=== PATIENT | female | born 1990 | race Caucasian/White ===

== ENCOUNTER 2017-01-11 20:59 | Emergency (ER) | payer BC ==
[2017-01-11] MEDS ORDERED: SODIUM CHLORIDE 0.9% 1,000 ML IV ONE (21:37)
[2017-01-11 22:09] LABS: Appearance,Urine Cloudy (Clear); Bacteria,Urine Rare /hpf; Bilirubin,Urine Negative (Negative); Calcium Oxalate Crystals,Urine Occasional /hpf; Glucose,Urine (UA) Negative (Negative); Ketones,Urine Negative (Negative); Leukocyte Esterase,Urine Small (Negative); Mucus,Urine Rare /hpf; Nitrite,Urine Negative (Negative); PH, Urine 5.5 (5.0-8.0); Particle Count 4210; Protein,Urine Trace (Negative); RBC,Urine 2 /hpf (0-5); Specific Gravity,Urine 1.028 (1.001-1.035); Squamous Epithelial Cell,Urine 5 /hpf (0-4); UA Billing (MACRO vs. MICRO) MICRO; WBC,Urine 3 /hpf (0-5)
--- NOTE | 2017-01-11 22:18 | ED ---
Abdominal Pain HPI - General Chief Complaint: Abdominal Pain Stated Complaint: 14 weeks /Cramping Time Seen by Provider: 01/11/17 21:23 Source: patient Mode of arrival: ambulatory Limitations: no limitations - History of Present Illness Initial Comments: 26-year-old female patient percents to emergency department today for complaints of suprapubic cramping. Patient states that she is 14 weeks . States that she has had cramping for the last 3 hours. She denies any radiation of the pain to her back. She states the pain is intermittent, and she rates it at 8-9 out of 10 on a scale when the pain is present. She denies any vaginal bleeding or discharge. Denies any hematuria, dysuria, urinary frequency or urinary urgency. Denies any constipation or diarrhea. Patient denies any recent rash, fever, chills, shortness breath, chest pain, nausea, vomiting, numbness, tingling, dizziness, weakness, headache, visual changes, or any other complaints. Patient is . She has had initial evaluation with her [employer]NAGER, initial ultrasound at 8 weeks gestation showed an intrauterine . - Related Data Home Medications Medication Instructions Recorded Confirmed Caf-Bpln-Vhuvh Acid 1 cap PO DAILY 01/11/17 01/11/17 [-U Capsule (formulary)] Previous Rx's Medication Instructions Recorded Nitrofurantoin Monohyd/M-Cryst 100 mg PO Q12HR #14 cap 01/11/17 [Macrobid] Allergies Allergy/AdvReac Type Severity Reaction Status Date / Time No Known Allergies Allergy Verified 01/11/17 22:43 Review of Systems ROS Statement: Those systems with pertinent positive or pertinent negative responses have been documented in the HPI. ROS Other: All systems not noted in ROS Statement are negative. Past Medical History Past Medical History: No Reported History Additional Past Medical History / Comment(s): migraine History of Any Multi-Drug Resistant Organisms: MRSA, VRE Date of last positivie culture/infection: 2011 MDRO Source:: arm/knee Past Surgical History: No Surgical Hx Reported Past Psychological History: No Psychological Hx Reported Smoking Status: Never smoker Past Alcohol Use History: None Reported Past Drug Use History: None Reported General Exam Limitations: no limitations General appearance: alert, in no apparent distress, other (Well-developed, well- nourished adult female in no acute distress. Vital signs upon presentation were temperature 97.4F, pulse 83, respirations 18, blood pressure 117/71, pulse ox 100.) Eye exam: Present: normal appearance, PERRL, EOMI. Absent: scleral icterus, conjunctival injection, periorbital swelling ENT exam: Present: normal exam, mucous membranes moist Neck exam: Present: normal inspection. Absent: tenderness, meningismus, lymphadenopathy Respiratory exam: Present: normal lung sounds bilaterally. Absent: respiratory distress, wheezes, rales, rhonchi, stridor Cardiovascular Exam: Present: regular rate, normal rhythm, normal heart sounds. Absent: systolic murmur, diastolic murmur, rubs, gallop, clicks GI/Abdominal exam: Present: soft, normal bowel sounds. Absent: distended, tenderness, guarding, rebound, rigid Back exam: Present: normal inspection, CVA tenderness (R), CVA tenderness (L) Neurological exam: Present: alert, oriented X3, CN II-XII intact Psychiatric exam: Present: normal affect, normal mood Skin exam: Present: warm, dry, intact, normal color. Absent: rash Course Vital Signs 01/11/17 21:14 Temperature 97.4 F L Pulse Rate 83 Respiratory 18 Rate Blood Pressure 117/71 O2 Sat by Pulse 100 Oximetry Medical Decision Making - Medical Decision Making 26-year-old female patient presented for evaluation of suprapubic cramping. She did report she is 14 weeks . Patient states this is going on and off for the last 3 hours. Urinalysis was performed and showed a dark yellow color, cloudy appearance, trace protein, small leukocyte Estrace, 5 squamous epithelial cells, occasional calcium oxalate crystals, rare urine bacteria, and rare urine mucus. Ultrasound was performed and showed a single live intrauterine measuring 13 weeks 1 day, heart rate of the fetus was 155. Upon reevaluation patient states she is feeling much better, states that the cramping has lessened a lot since receiving fluids. I did inform her that we would be treating her for asymptomatic bacteruria with Macrobid. I did offer pelvic exam explaining that without any vaginal bleeding or discharge is not imperative that we perform this examination, she did refuse at this time. She has been instructed to increase her fluids. I will give her 1 more 500 mL bolus of normal saline prior to discharge as her urine was very dark and she reported drinking only 1 small bottle of water today. She is instructed to follow-up with her [employer] MANAGER in 1-2 days for recheck. She is instructed to return here immediately for any new, worsening, or concerning symptoms. Patient verbalizes understanding and agrees with this plan. - Lab Data Lab Results 01/11/17 Range/Units 21:05 Urine Color Dark Yellow Urine Appearance Cloudy H (Clear) Urine pH 5.5 (5.0-8.0) Ur Specific [place] 1.028 (1.001-1.035) Urine Protein Trace H (Negative) Urine Glucose (UA) Negative (Negative) Urine Ketones Negative (Negative) Urine Blood Negative (Negative) Urine Nitrite Negative (Negative) Urine Bilirubin Negative (Negative) Urine Urobilinogen 3.0 (<2.0) mg/dL Ur Leukocyte Esterase Small H (Negative) Urine RBC 2 (0-5) /hpf Urine WBC 3 (0-5) /hpf Ur Squamous Epith Cells 5 H (0-4) /hpf Calcium Oxalate Crystal Occasional H (None) /hpf Urine Bacteria Rare H (None) /hpf Urine Mucus Rare H (None) /hpf - Radiology Data Radiology results: report reviewed, image reviewed ultrasound report reviewed in detail, impression by shows a single live intrauterine with gestational age of 13 weeks 1 day. Heart rate is 155. Disposition Clinical Impression: Abdominal pain during , Asymptomatic bacteriuria Disposition: HOME SELF-CARE Condition: Good Instructions: Abdominal Pain in (ED), Urinary Tract Infection in (ED) Additional Instructions: Take medications as directed. Follow-up with your [employer] MANAGER as soon as possible. Increase her fluids. Follow up with primary care provider in 1-2 days for a recheck. Return immediately to emergency for any new, worsening, or concerning symptoms. Prescriptions: Nitrofurantoin Monohyd/M-Cryst [Macrobid] 100 mg PO Q12HR #14 cap Referrals: Hermes Yeung MD [Primary Care Provider] - 1-2 days Dana Villegas MD [STAFF PHYSICIAN] - 1-2 days Time of Disposition: 23:12
--- NOTE | 2017-01-11 22:43 | US ---
EXAM: US After First Trimester, Transabdominal CLINICAL HISTORY: Reason: Pain. Cramping TECHNIQUE: Real-time transabdominal obstetrical ultrasound of the maternal pelvis and a second or third trimester with image documentation. COMPARISON: No relevant prior studies available. FINDINGS: MATERNAL ANATOMY Uterus: 12.8 x 8.5 x 10.3cm Right Ovary: obscured by overlying bowel gas Left Ovary: 3.4 x 1.4 x 1.4 Post CDS / Adnexa: Within normal limits GESTATION / SURVEY CRL: 7.0 (13 weeks/1 day) Yolk Sac (normal less than 6mm): not seen Heart Rate: 155 bpm Rhythm: Normal Date of LMP: unknown Beta HcG (if available): not available IMPRESSION: Single live intrauterine with a gestational age of 13 weeks 1 day.
[2017-01-11] MEDS ORDERED: SODIUM CHLORIDE 0.9% 500 ML IV STA (23:05)
[2017-01-11 23:48] VITALS: BP 128/76; PULSE 68; RESP 19; TEMP 97.5
== END 2017-01-11 23:48 | disposition home or self-care (01) ==
LOC: EC 20:59
DX: O99.89 Other specified diseases and conditions complicating pregnancy, childbirth and the puerperium (principal); R10.9 Unspecified abdominal pain; R82.71 Bacteriuria; Z86.14 Personal history of Methicillin resistant Staphylococcus aureus infection; Z3A.14 14 weeks gestation of pregnancy; Z79.899 Other long term (current) drug therapy
CPT/HCPCS: 76801; 81001; 96360; 96361; 99284

== ENCOUNTER 2017-05-11 13:41 | Outpatient (CLI) | payer BC ==
[2017-05-11 14:09] LABS: Glucose,Whole Blood 85 mg/dL (75-99)
[2017-05-11] MEDS ORDERED: ACETAMINOPHEN TAB 500 MG TAB PO STA (14:45)
[2017-05-11 15:05] VITALS: PULSE 75; RESP 16; TEMP 97.5
[2017-05-11 15:35] VITALS: BP 119/77
--- NOTE | 2017-06-19 08:25 | P.MSEPDOC ---
Presenting Problems - Arrival Data Date of Arrival on Unit: 05/11/17 Time of Arrival on Unit: 13:41 Mode of Transport: Ambulatory - Complaint OB-Reason for Admission/Chief Complaint: Headache, Visual Disturbances, Observation/Evaluation, Dizziness Comment: Pt states visual disturbances (black floaters) begain about 1200, headache approx 40min after visual dist. Hx of migraines. Numbness in hands while driving in, numbness resolved. Medical History - Information : 3 Para: 2 Term: 2 : 0 Abortions: Spontaneous or Elective: 0 Number of Living Children: 2 - Gestational Age Gestational Age by CARA (wks/days): 30 Weeks and 2 Days Review of Systems - Review of Systems Constitutional: No problems Breast: No problems ENT: No problems Cardiovascular: No problems Respiratory: No problems Gastrointestinal: No problems Genitourinary: No problems Musculoskeletal: No problems Neurological: Dizziness Skin: No problems Comment: Pt states dizziness with visual disturbance-resolving Vital Signs - Temperature Temperature: 97.5 F Temperature Source: Temporal Artery Scan - Pulse Right Sitting Brachial Pulse Rate: 75 Pulse Assessment Method: Automatic Cuff - Respirations Respiratory Rate: 16 Oxygen Delivery Method: Room Air O2 Sat by Pulse Oximetry: 98 - Blood Pressure Right Arm Sitting Blood Pressure: 119/77 Blood Pressure Mean: 91 Blood Pressure Source: Automatic Cuff Medical Screen Scoring (Pre) - Cervical Exam Dilation: Exam Deferred Effacement: Exam Deferred Membranes: Intact - Uterine Contractions Frequency: N/A Duration: N/A Intensity: N/A - Maternal Vital Signs Maternal Temperature: N/A Maternal Blood Pressure: N/A Signs of Preeclampsia: N/A Maternal Respirations: N/A - Pain Assessment Pain Location and Character: Head Pain Scale Used: Numeric (1 - 10) Pain Intensity: 8 Pain Management Goal: 2 Pain Description: *Acute Pain Radiation Location: none Pain Frequency: Constant Pain Duration: 3 Pain Duration Units: Hours Pain Behavior: Vocalization Pharmacological Interventions: PRN Medication - Maternal Trauma Maternal Trauma: N/A - Assessment Baseline FHR: 130 Heart Rate - NICHD Category: Category I (Normal) = 0 NST: Reactive Position: N/A Station: N/A - Total Score Total Score (Pre): 0 - Level of Risk Level of Risk: Low (0-5) Physician Notification (Pre) - Physician Notified Physician Notified Date: 05/11/17 Physician Notified Time: 14:40 Physician/Practitioner Notifed:: Bakari Spoke With: Bakari New Order Received: Yes - Notification Comment Comment: Admin Tylenol 1000mg PO now, T3 prescription to be called in to [facility] in [place]; instruct pt she may take 1 T3 c\ 1 Tyl 500mg. Pt may be discharged home if some relief obtained with regular tylenol. Medical Screen Scoring (Post) - Cervical Exam Dilation: Exam Deferred Effacement: Exam Deferred Membranes: Intact - Uterine Contractions Frequency: N/A Duration: N/A Intensity: N/A - Maternal Vital Signs Maternal Temperature: N/A Maternal Blood Pressure: N/A Signs of Preeclampsia: N/A Maternal Respirations: N/A - Maternal Trauma Maternal Trauma: N/A - Assessment Heart Rate: 130 Heart Rate - NICHD Category: Category I (Normal) = 0 NST: Reactive Position: N/A Station: N/A - Total Score Total Score (Post): 0 - Post Treatment Level of Risk Post Treatment Level of Risk: Low (0-5) Physician Notification (Post) - Physician Notified Spoke With: Bakari New Order Received: Yes - Notification Comment Comment: Headache pain decreased post Tyl 1000mg administered. Pt to be discharged from triage, script for T3 cld in to [facility]. Pt to follow up with neurologist. Disposition - Disposition OB Disposition: Discharge to home, Written follow up instructions reviewed Discharge Date: 05/11/17 Discharge Time: 15:30 I agree with the RN Medical Screening Exam: Yes Risk & Benefit of care provided described in d/c instruction: Yes Diagnosis: HEADACHE
== END 2017-05-11 15:30 | disposition home or self-care (01) ==
LOC: FBPOP 13:41
PROVIDERS: ATTEND Obstetrics & Gynecology
DX: O99.89 Other specified diseases and conditions complicating pregnancy, childbirth and the puerperium (principal); R51 Headache; R42 Dizziness and giddiness; H53.8 Other visual disturbances; Z3A.30 30 weeks gestation of pregnancy
CPT/HCPCS: 59025; 99213

== ENCOUNTER 2017-05-16 01:00 | Outpatient (CLI) | payer BC ==
[2017-05-16 02:10] LABS: Appearance,Urine Cloudy (Clear); Bacteria,Urine Occasional /hpf; Bilirubin,Urine Negative (Negative); Blood,Urine Trace (Negative); Color,Urine Yellow; Glucose,Urine (UA) Negative (Negative); Ketones,Urine Trace (Negative); Leukocyte Esterase,Urine Large (Negative); Mucus,Urine Many /hpf; Nitrite,Urine Negative (Negative); Protein,Urine 1+ (Negative); RBC,Urine 14 /hpf (0-5); Specific Gravity,Urine 1.028 (1.001-1.035); Squamous Epithelial Cell,Urine 32 /hpf (0-4); WBC,Urine 11 /hpf (0-5)
[2017-05-16 02:13] VITALS: BP 113/60; PULSE 90; RESP 16; TEMP 97.5
--- NOTE | 2017-05-17 11:28 | P.MSEPDOC ---
Presenting Problems - Arrival Data Date of Arrival on Unit: 05/16/17 Time of Arrival on Unit: 01:00 Mode of Transport: Ambulatory - Complaint OB-Reason for Admission/Chief Complaint: Pain Comment: Pt arrives to triage with c/o of severe back pain and mild cramping Medical History - Information : 3 Para: 2 Term: 2 : 0 Abortions: Spontaneous or Elective: 0 Number of Living Children: 2 - Gestational Age Gestational Age by CARA (wks/days): 31 Weeks and 0 Days Review of Systems - Review of Systems Constitutional: No problems Breast: No problems ENT: No problems Cardiovascular: No problems Respiratory: No problems Gastrointestinal: No problems Genitourinary: No problems Musculoskeletal: No problems Neurological: No problems Skin: No problems Vital Signs - Temperature Temperature: 97.5 F Temperature Source: Temporal Artery Scan - Pulse Right Brachial Pulse Rate: 90 Pulse Assessment Method: Automatic Cuff - Respirations Respiratory Rate: 16 Oxygen Delivery Method: Room Air O2 Sat by Pulse Oximetry: 97 - Blood Pressure Right Arm Blood Pressure: 113/60 Blood Pressure Mean: 77 Blood Pressure Source: Automatic Cuff Medical Screen Scoring (Pre) - Cervical Exam Dilation: 0 cm = 0 Membranes: Intact - Uterine Contractions Frequency: > 5 minutes apart = 1 Duration: N/A Intensity: N/A - Maternal Vital Signs Maternal Temperature: N/A Maternal Blood Pressure: N/A Signs of Preeclampsia: N/A - Pain Assessment Pain Location and Character: Back Pain Scale Used: Numeric (1 - 10) Pain Intensity: 8 Pain Description: *Acute, Aching Pain Frequency: Intermittent Pain Duration: 15 Pain Behavior: None Exhibited Pain Aggravating Factors: None Non-Pharmacological Interventions: Inactivity - Assessment Baseline FHR: 150 Heart Rate - NICHD Category: Category I (Normal) = 0 NST: Reactive Position: N/A Station: N/A - Total Score Total Score (Pre): 1 - Level of Risk Level of Risk: Low (0-5) Physician Notification (Pre) - Physician Notified Physician Notified Date: 05/16/17 Physician Notified Time: 01:46 Physician/Practitioner Notifed:: Dr. Montez Spoke With: Dr. Montez New Order Received: Yes - Notification Comment Comment: Dr. Montez called and given report on pt in triage. C/o of severe back pain and mild cramping, no leaking or bleeding. Orders recieved to collect u/a, ffn and perform vag exam and to call with results. Medical Screen Scoring (Post) - Cervical Exam Dilation: 0 cm = 0 - Uterine Contractions Frequency: > 5 minutes apart = 1 - Maternal Vital Signs Maternal Temperature: N/A Maternal Blood Pressure: N/A Signs of Preeclampsia: N/A Maternal Respirations: N/A - Pain Assessment Pain Location and Character: Back Pain Scale Used: Numeric (1 - 10) Pain Intensity: 6 Pain Description: *Acute, Sore Pain Frequency: Intermittent Pain Duration: 15 Pain Duration Units: Minutes Pain Behavior: None Exhibited Pain Aggravating Factors: None Non-Pharmacological Interventions: Inactivity - Maternal Trauma Maternal Trauma: N/A - Assessment Heart Rate: 130 Heart Rate - NICHD Category: Category I (Normal) = 0 NST: Reactive Position: N/A Station: N/A - Total Score Total Score (Post): 1 - Post Treatment Level of Risk Post Treatment Level of Risk: Low (0-5) Physician Notification (Post) - Physician Notified Physician Notified Date: 05/16/17 Physician Notified Time: 02:48 Physician/Practitioner Notified:: Dr. Montez Spoke With: Dr. Montez New Order Received: Yes (Discharge pt to home.) - Notification Comment Comment: Yuriy Coto agree with MSE david Trejo Disposition - Disposition OB Disposition: Discharge to home Discharge Date: 05/16/17 Discharge Time: 02:56 I agree with the RN Medical Screening Exam: Yes Risk & Benefit of care provided described in d/c instruction: Yes Diagnosis: RELATED CONDITIONS, UNSPECIFIED, THIRD TRIMESTER
== END 2017-05-16 02:56 | disposition home or self-care (01) ==
LOC: FBPOP 01:00
PROVIDERS: ATTEND Obstetrics & Gynecology
DX: O99.89 Other specified diseases and conditions complicating pregnancy, childbirth and the puerperium (principal); M54.9 Dorsalgia, unspecified; R25.2 Cramp and spasm; Z3A.31 31 weeks gestation of pregnancy
CPT/HCPCS: 59025; 81001; 82731; 99213

== ENCOUNTER 2017-06-30 14:47 | Outpatient (CLI) | payer BC ==
[2017-06-30 15:08] VITALS: BP 122/81; PULSE 97; RESP 20; TEMP 98.2
--- NOTE | 2017-07-10 08:13 | P.MSEPDOC ---
Presenting Problems - Arrival Data Date of Arrival on Unit: 06/30/17 Time of Arrival on Unit: 14:47 Mode of Transport: Ambulatory - Complaint OB-Reason for Admission/Chief Complaint: Rule Out PROM Medical History - Information : 3 Para: 2 Term: 2 : 0 Abortions: Spontaneous or Elective: 0 Number of Living Children: 2 - Gestational Age Gestational Age by CARA (wks/days): 37 Weeks and 3 Days Review of Systems - Review of Systems Constitutional: No problems Breast: No problems ENT: No problems Cardiovascular: No problems Respiratory: No problems Gastrointestinal: No problems Genitourinary: No problems Musculoskeletal: No problems Neurological: No problems Skin: No problems Vital Signs - Temperature Temperature: 98.2 F Temperature Source: Temporal Artery Scan - Pulse Brachial Pulse Rate: 97 Pulse Assessment Method: Automatic Cuff - Respirations Respiratory Rate: 20 Oxygen Delivery Method: Room Air - Blood Pressure Right Arm Blood Pressure: 122/81 Blood Pressure Mean: 94 Blood Pressure Source: Automatic Cuff Medical Screen Scoring (Pre) - Cervical Exam Dilation: 0 cm = 0 - Uterine Contractions Frequency: > 5 minutes apart = 1 - Pain Assessment Pain Location and Character: Back, Abdomen Pain Scale Used: Numeric (1 - 10) Pain Intensity: 3 Pain Management Goal: 2 Pain Description: *Acute Pain Frequency: Intermittent Pain Behavior: Vocalization Pain Aggravating Factors: Contractions Non-Pharmacological Interventions: Darkened Room, Distraction, Reduce Environmental Stimuli, Relaxation Technique - Assessment Baseline FHR: 136 Heart Rate - NICHD Category: Category I (Normal) = 0 - Total Score Total Score (Pre): 1 Physician Notification (Pre) - Physician Notified Physician Notified Date: 06/30/17 Physician Notified Time: 15:40 Physician/Practitioner Notifed:: dr villegas Spoke With: dr villegas New Order Received: Yes - Notification Comment Comment: Amnisure negative, Dr Villegas on unit and reviewed monitor strip. Order to discharge home to follow up with next scheduled appt Disposition - Disposition OB Disposition: Discharge to home Discharge Date: 06/30/17 Discharge Time: 15:45 I agree with the RN Medical Screening Exam: Yes Risk & Benefit of care provided described in d/c instruction: Yes Diagnosis: FALSE LABOR AT OR AFTER 37 COMPLETED WEEKS OF GESTATION
== END 2017-06-30 15:45 | disposition home or self-care (01) ==
LOC: FBPOP 14:47
PROVIDERS: ATTEND Obstetrics & Gynecology
DX: O47.1 False labor at or after 37 completed weeks of gestation (principal); Z3A.37 37 weeks gestation of pregnancy
CPT/HCPCS: 59025; 84112; 99213

== ENCOUNTER 2017-07-07 17:25 | Outpatient (CLI) | payer BC ==
[2017-07-07 18:29] VITALS: BP 119/75; PULSE 85; RESP 16; TEMP 97.6
--- NOTE | 2017-07-08 16:44 | P.MSEPDOC ---
Presenting Problems - Arrival Data Date of Arrival on Unit: 07/07/17 Time of Arrival on Unit: 17:25 Mode of Transport: Ambulatory - Complaint OB-Reason for Admission/Chief Complaint: Decreased Movement Medical History - Information : 3 Para: 2 Term: 2 : 0 Abortions: Spontaneous or Elective: 0 Number of Living Children: 2 - Gestational Age Gestational Age by CARA (wks/days): 38 Weeks and 3 Days Review of Systems - Review of Systems Constitutional: No problems Breast: No problems ENT: No problems Cardiovascular: No problems Respiratory: No problems Gastrointestinal: No problems Genitourinary: No problems Musculoskeletal: No problems Neurological: No problems Skin: No problems Vital Signs - Temperature Temperature: 97.6 F Temperature Source: Temporal Artery Scan - Pulse Right Sitting Pulse Rate: 85 Pulse Assessment Method: Automatic Cuff - Respirations Respiratory Rate: 16 Oxygen Delivery Method: Room Air - Blood Pressure Right Arm Blood Pressure: 119/75 Blood Pressure Mean: 89 Blood Pressure Source: Automatic Cuff Medical Screen Scoring (Pre) - Cervical Exam Dilation: 1-3 cm = 1 Membranes: Intact - Uterine Contractions Frequency: > 5 minutes apart = 1 Duration: > 40 seconds = 2 - Maternal Vital Signs Maternal Temperature: N/A Maternal Blood Pressure: N/A Signs of Preeclampsia: N/A Maternal Respirations: N/A - Pain Assessment Pain Location and Character: Abdomen Pain Scale Used: Numeric (1 - 10) Pain Intensity: 2 Pain Description: Cramping Pain Frequency: Occasional Pain Duration Units: Minutes Pain Behavior: None Exhibited Pain Aggravating Factors: Contractions - Total Score Total Score (Pre): 4 - Level of Risk Level of Risk: Low (0-5) Physician Notification (Pre) - Physician Notified Physician Notified Date: 07/07/17 Physician Notified Time: 18:07 Physician/Practitioner Notifed:: Cleo Disposition - Disposition OB Disposition: Discharge to home Discharge Date: 07/07/17 Discharge Time: 18:13 I agree with the RN Medical Screening Exam: Yes Risk & Benefit of care provided described in d/c instruction: Yes Diagnosis: 38 WEEKS GESTATION OF
== END 2017-07-07 18:13 | disposition home or self-care (01) ==
LOC: FBPOP 17:25
PROVIDERS: ATTEND Obstetrics & Gynecology
DX: O36.8130 Decreased fetal movements, third trimester, not applicable or unspecified (principal); Z3A.38 38 weeks gestation of pregnancy
CPT/HCPCS: 59025; 99213

== ENCOUNTER 2017-07-08 07:59 | Outpatient (CLI) | payer BC ==
[2017-07-08 11:03] VITALS: BP 120/78; PULSE 81; RESP 20; TEMP 97
--- NOTE | 2017-07-10 08:20 | P.MSEPDOC ---
Presenting Problems - Arrival Data Date of Arrival on Unit: 07/08/17 Time of Arrival on Unit: 08:30 Mode of Transport: Ambulatory - Complaint OB-Reason for Admission/Chief Complaint: Pain Comment: Pubic pain Medical History - Information : 4 Para: 2 Term: 2 : 0 Abortions: Spontaneous or Elective: 0 Number of Living Children: 2 - Gestational Age Gestational Age by CARA (wks/days): 38 Weeks and 4 Days Review of Systems - Review of Systems Constitutional: No problems Breast: No problems ENT: No problems Cardiovascular: No problems Respiratory: No problems Gastrointestinal: No problems Genitourinary: No problems Musculoskeletal: No problems Neurological: No problems Skin: No problems Vital Signs - Temperature Temperature: 97 F Temperature Source: Tympanic - Pulse Right Sitting Brachial Pulse Rate: 81 Pulse Assessment Method: Automatic Cuff - Respirations Respiratory Rate: 20 Oxygen Delivery Method: Room Air O2 Sat by Pulse Oximetry: 99 - Blood Pressure Right Arm Sitting Blood Pressure: 120/78 Blood Pressure Mean: 92 Blood Pressure Source: Automatic Cuff Medical Screen Scoring (Pre) - Cervical Exam Dilation: 1-3 cm = 1 Membranes: Intact - Uterine Contractions Frequency: N/A Duration: N/A Intensity: N/A - Maternal Vital Signs Maternal Temperature: N/A Maternal Blood Pressure: N/A Signs of Preeclampsia: N/A Maternal Respirations: N/A - Pain Assessment Pain Location and Character: Lower, Pelvic Pain Scale Used: Numeric (1 - 10) Pain Description: *Acute - Maternal Trauma Maternal Trauma: N/A - Assessment Baseline FHR: 130 Heart Rate - NICHD Category: Category I (Normal) = 0 NST: Reactive Position: N/A Station: N/A - Total Score Total Score (Pre): 1 - Level of Risk Level of Risk: Low (0-5) Physician Notification (Pre) - Physician Notified Physician Notified Date: 07/08/17 Physician Notified Time: 08:40 Physician/Practitioner Notifed:: Bakari Spoke With: Bakari New Order Received: Yes - Notification Comment Comment: Spk c\Dr. Villegas, reported pt to triage with complaints of suprapubic pain, pt. denies symptoms of UTI (has hx), , 38 4/7, 50/ballotable, no contractions,. reactive NST. States to follow up in office tomorrow and purchase maternal support belt. Disposition - Disposition OB Disposition: Discharge to home, Written follow up instructions reviewed Discharge Date: 07/08/17 Discharge Time: 08:45 I agree with the RN Medical Screening Exam: Yes Risk & Benefit of care provided described in d/c instruction: Yes Diagnosis: FALSE LABOR AT OR AFTER 37 COMPLETED WEEKS OF GESTATION Additional Diagnoses: O47.1
== END 2017-07-08 08:45 | disposition home or self-care (01) ==
LOC: FBPOP 07:59
PROVIDERS: ATTEND Obstetrics & Gynecology
DX: Z53.9 Procedure and treatment not carried out, unspecified reason (principal)

== ENCOUNTER 2017-07-11 19:28 | Outpatient (CLI) | payer BC ==
[2017-07-11 21:04] VITALS: BP 135/79; PULSE 94; RESP 17; TEMP 97.8
--- NOTE | 2017-08-22 16:35 | P.MSEPDOC ---
Presenting Problems - Arrival Data Date of Arrival on Unit: 07/11/17 Time of Arrival on Unit: 19:30 Mode of Transport: Ambulatory - Complaint OB-Reason for Admission/Chief Complaint: Possible Onset of Labor Comment: Presents to triage for evaluation of contractions that began about two days ago but intensified about 1730 this evening. Medical History - Information : 4 Para: 2 Term: 2 : 0 Abortions: Spontaneous or Elective: 0 Number of Living Children: 2 - Gestational Age Gestational Age by CARA (wks/days): 39 Weeks and 0 Days Review of Systems - Review of Systems Constitutional: No problems Breast: No problems ENT: No problems Cardiovascular: No problems Respiratory: No problems Gastrointestinal: No problems Genitourinary: No problems Musculoskeletal: No problems Neurological: No problems Skin: No problems Vital Signs - Temperature Temperature: 97.8 F Temperature Source: Temporal Artery Scan - Pulse Pulse Oximetery Pulse Rate: 94 Pulse Assessment Method: Pulse Oximetry - Respirations Respiratory Rate: 17 Oxygen Delivery Method: Room Air O2 Sat by Pulse Oximetry: 98 - Blood Pressure Right Arm Blood Pressure: 135/79 Blood Pressure Mean: 97 Blood Pressure Source: Automatic Cuff Medical Screen Scoring (Pre) - Cervical Exam Dilation: 1-3 cm = 1 Effacement: More than 50% = 2 Membranes: Intact - Uterine Contractions Frequency: > 5 minutes apart = 1 Duration: > 40 seconds = 2 Intensity: N/A - Maternal Vital Signs Maternal Temperature: N/A Maternal Blood Pressure: N/A Signs of Preeclampsia: N/A Maternal Respirations: N/A - Pain Assessment Pain Location and Character: Abdomen Pain Scale Used: Numeric (1 - 10) Pain Intensity: 6 Pain Management Goal: 3 Pain Description: Cramping Pain Radiation Location: n/a Pain Frequency: Intermittent Pain Duration: 2 Pain Duration Units: Hours Pain Behavior: Vocalization Effects of Pain: none Pain Aggravating Factors: Contractions Pharmacological Interventions: PRN Medication - Maternal Trauma Maternal Trauma: N/A - Assessment Baseline FHR: 125 Heart Rate - NICHD Category: Category I (Normal) = 0 NST: Reactive Position: N/A Station: N/A - Total Score Total Score (Pre): 6 - Level of Risk Level of Risk: Medium (6-9) Physician Notification (Pre) - Physician Notified Physician Notified Date: 07/11/17 Physician Notified Time: 20:40 Physician/Practitioner Notifed:: Melida Spoke With: Melida New Order Received: Yes (Discharge home) - Notification Comment Comment: Patient may either stay additional hour for recheck or may be discharged home. Disposition - Disposition OB Disposition: Discharge to home Discharge Date: 07/11/17 Discharge Time: 20:45 I agree with the RN Medical Screening Exam: Yes Risk & Benefit of care provided described in d/c instruction: Yes Diagnosis: FALSE LABOR AT OR AFTER 37 COMPLETED WEEKS OF GESTATION
== END 2017-07-11 20:45 | disposition home or self-care (01) ==
LOC: FBPOP 19:28
PROVIDERS: ATTEND Obstetrics & Gynecology
DX: O47.1 False labor at or after 37 completed weeks of gestation (principal); Z3A.39 39 weeks gestation of pregnancy
CPT/HCPCS: 59025; 99213

== ENCOUNTER 2017-07-13 06:19 | Inpatient (IN) | payer BC ==
[2017-07-13] MEDS ORDERED: OXYTOCIN 10 UNIT/ML 1 ML VIAL IM PRN (06:30)
[2017-07-13] MEDS ORDERED: OXYTOCIN 20 UNITS/1000 ML NS 1,000 ML IV SCH (06:30)
[2017-07-13] MEDS ORDERED: METHYLERGONOVINE 0.2 MG/ML 1 ML AMP IM PRN (06:30)
[2017-07-13] MEDS ORDERED: LIDOCAINE 1% (PF) 10 MG/ML (30 ML SDV) SQ PRN (06:30)
[2017-07-13] MEDS ORDERED: TERBUTALINE 1 MG/ML VIAL SQ PRN (06:30)
[2017-07-13] MEDS ORDERED: PENICILLIN G POTASSIUM 5,000,000 UNIT in DEXTROSE 5% IN WATER 100 ML IVPB STA ×2 (06:30)
[2017-07-13] MEDS ORDERED: CARBOPROST TROMETHAMINE 250 MCG/ML 1 ML AMP IM PRN (06:30)
[2017-07-13] MEDS: LACTATED RINGERS 1,000 ML IV SCH ×2 (06:40→09:52)
[2017-07-13 06:49] LABS: Basophils % (A) 0 %; Eosinophils # (A) 0.1 k/uL (0-0.7); Eosinophils % (A) 1 %; HCT 33.9 % (34.0-46.0); HGB 11.6 gm/dL (11.4-16.0); Lymphocytes # (A) 1.6 k/uL (1.0-4.8); Lymphocytes % (A) 18 %; MCH 28.4 pg (25.0-35.0); MCV 83.5 fL (80.0-100.0); Mean Platelet Volume 7.1; Monocytes # (A) 0.4 k/uL (0-1.0); Monocytes % (A) 5 %; Neutrophils # (A) 6.3 k/uL (1.3-7.7); Neutrophils % (A) 73 %; Platelet Count 329 k/uL (150-450); RBC 4.07 m/uL (3.80-5.40); RDW 13.8 % (11.5-15.5); WBC 8.7 k/uL (3.8-10.6)
[2017-07-13 06:56] VITALS: BMI 34.0
--- NOTE | 2017-07-13 07:32 | P.HPOB ---
History of Present Illness H&P Date: 07/13/17 This is a 26-year-old 4 para 2011 EDC 07/18/2017 at 39-2/7 weeks' gestation. Patient presents for induction with favorable multiparous cervix. She has been having irregular moderately intense uterine contractions. She denies fluid leakage or vaginal bleeding. Fetus is been active throughout the . Past obstetric history: Blood type A positive, rubella status immune. Group B strep cultures positive. Hepatitis B surface antigen, HIV testing, urine culture, gonorrhea and chlamydia cultures all negative. One-hour Glucola 79. Liver function studies within normal limits. Past surgical history is essentially negative. Past medical history significant for anxiety and depression. Current medications vitamins daily. ALLERGIES none known. Family history significant for hypertension and a brain aneurysm. Social history patient is single, she has never been a smoker, she denies alcohol or drug use. On exam this is a pleasant white female, she is 5 foot 4 inches, 198 pounds, blood pressure 130s over 80s on admission, pulse 83. The general physical exam is within normal limits. The extremities reveal no edema. The cervix is 3 cm dilated, 70% effaced, -2 station, vertex presentation. Artificial amniorrhexis reveals clear fluid. heart rate is consistent with reactive NST. There are mild uterine contractions noted every 4 minutes apart. Impression: 39-2/7 weeks intrauterine , positive group B strep cultures , here for induction of labor. All signs reassuring. Plan: Penicillin G first doses been given, continue same per protocol. Oxytocin per hospital protocol. Close maternal and surveillance. Anticipate normal spontaneous vaginal delivery. Review of Systems Constitutional: Reports as per HPI Past Medical History Past Medical History: No Reported History Additional Past Medical History / Comment(s): migraine, anxiety and depression. History of Any Multi-Drug Resistant Organisms: MRSA, VRE Date of last positivie culture/infection: 2011 MDRO Source:: arm/knee Past Surgical History: No Surgical Hx Reported Additional Past Anesthesia/Blood Transfusion Reaction / Comment(s): no blood transfusion history Past Psychological History: No Psychological Hx Reported Smoking Status: Former smoker Past Alcohol Use History: None Reported Past Drug Use History: None Reported - Past Family History Mother History Unknown: Yes Additional Family Medical History / Comment(s): brain aneurysm Medications and Allergies Home Medications Medication Instructions Recorded Confirmed Type Abh-Tcen-Ostgf Acid 1 cap PO DAILY 01/11/17 07/13/17 History [-U Capsule (formulary)] Allergies Allergy/AdvReac Type Severity Reaction Status Date / Time No Known Allergies Allergy Verified 07/13/17 06:30 Exam - Vital Signs Vital signs: Vital Signs Temp Pulse Resp BP Pulse Ox 07/13/17 06:41 96.9 F L 83 16 133/84 97 Intake and Output 07/12/17 07/13/17 07/13/17 22:59 06:59 14:59 Other: Weight 89.811 kg See dictation under HPI please Results Result Diagrams: 07/13/17 06:36 Abnormal Lab Results - Last 24 Hours (Table) 07/13/17 Range/Units 06:36 Hct 33.9 L (34.0-46.0) % Assessment and Plan Plan: Penicillin G per hospital protocol. Oxytocin per protocol. Close maternal and surveillance. Anticipate normal spontaneous vaginal delivery. Time with Patient: Less than 30
[2017-07-13] MEDS ORDERED: SODIUM CHLORIDE 0.9% 100 ML BAG ONE (09:27)
[2017-07-13] MEDS ORDERED: BUPIVACAINE (PF) 0.25% 30 ML VIAL ONE (09:27)
[2017-07-13] MEDS ORDERED: fentaNYL (PF) 50 MCG/ML 5 ML AMP ONE (09:27)
[2017-07-13] MEDS ORDERED: BUPIVACAINE (PF) 0.25% 25 ML, fentaNYL (PF) 200 MCG in SODIUM CHLORIDE 0.9% 71 ML EPIDURAL ONE (09:50)
[2017-07-13] MEDS ORDERED: LANOLIN CREAM 5 GM TUBE TOPICAL PRN (11:23)
[2017-07-13] MEDS ORDERED: HYDROCORTISONE 2.5% RECTAL CREAM 30 GM TUBE RECTAL PRN (11:23)
[2017-07-13] MEDS ORDERED: BENZOCAINE/MENTHOL SPRAY 1 GM/SPRAY AEROSOL TOPICAL PRN (11:23)
[2017-07-13] MEDS ORDERED: diphenhydrAMINE 25 MG CAP PO PRN (11:23)
[2017-07-13] MEDS ORDERED: SIMETHICONE 80 MG CHEWABLE PO PRN (11:23)
[2017-07-13] MEDS ORDERED: diphenhydrAMINE ELIXIR 25 MG/10 ML CUP PO PRN (11:23)
[2017-07-13] MEDS ORDERED: ZOLPIDEM 5 MG TAB PO PRN (11:23)
[2017-07-13] MEDS ORDERED: WITCH HAZEL 1 EACH MED..PAD TOPICAL PRN (11:23)
[2017-07-13] MEDS ORDERED: diphenhydrAMINE 50 MG CAP PO PRN (11:23)
[2017-07-13] MEDS ORDERED: diphenhydrAMINE 50 MG/ML 1 ML VIAL IVP PRN ×2 (11:23)
--- NOTE | 2017-07-13 11:23 | P.PROBDLV ---
Vaginal Delivery Note - . Vaginal Delivery Note: This is a 26-year-old 4 para 2011 EDC 07/18/2017 at 39-2/7 weeks' gestation. Patient presented for induction with favorable multiparous cervix, positive group B strep cultures. Please see history and physical for details. is essentially unremarkable, blood type is A+, rubella status immune. Artificial amniorrhexis revealed clear fluid. Epidural was placed per her request. Penicillin G was given. heart tones were reassuring throughout the first and second stages of labor. Patient became completely dilated at 1048 hrs. and began the second stage of labor at that time. The perineal body was prepped and draped in the usual sterile fashion. With excellent maternal expulsive efforts the 's head delivered occiput anterior and restituted accordingly. There was a nuchal cord 1 that was tight and easily reduced. Shoulder was not immediately forthcoming, and therefore suprapubic pressure was applied easily per the nurse in attendance at which time the shoulder gently and easily delivered from underneath the pubic symphysis. The oropharynx, nasopharynx and external nares were all bulb suctioned on the perineal body. Patient was officially delivered of a liveborn female infant at 1108 hours. The umbilical cord was doubly clamped and ligated , baby was handed to waiting nurses for evaluation where scores of 9 and 9 at one and 5 minutes respectively were given. The placenta delivered spontaneously and was inspected and noted to be intact with trivascular cord at 111 hours. At this time the uterus was massaged, it is firm, mobile, symmetric, 18 week size and in the midline. Inspection of the cervix, vagina, perineum, periurethral and perirectal areas revealed no lacerations and no defects. Total estimated blood loss 250 mL's. Infant weighed 7 lbs. 11 oz. or 3480 g. The patient and her family are allowed to begin the bonding experience in the LDR.
[2017-07-13] MEDS: PENICILLIN G POTASSIUM 2,500,000 UNIT in DEXTROSE 5% IN WATER 100 ML IVPB SCH ×4 (11:48→19:33)
[2017-07-13] MEDS: IBUPROFEN 600 MG TAB PO PRN ×2 (14:15→19:51)
[2017-07-13] MEDS: SENNOSIDES-DOCUSATE SODIUM 1 EACH TAB PO SCH (19:50)
[2017-07-14] MEDS: IBUPROFEN 600 MG TAB PO PRN ×4 (01:53→22:49)
--- NOTE | 2017-07-14 07:36 | P.DS ---
Providers Date of admission: 07/13/17 06:19 Expected date of discharge: 07/14/17 Attending physician: Dana Villegas Primary care physician: Stated None Hospital Course: This is a 26 -year-old 4 para 2009 EDC 07/18/2017 at 39-2/7 weeks' gestation. Patient presented for induction with favorable multiparous cervix. Her was significant for positive group B strep cultures. Penicillin was given per hospital protocol. Please see my admitting history and physical for details. Epidural was placed per patient's request. She went on to deliver a liveborn female infant with scores of 9 and 9 at one and 5 minutes respectively. Infant weighed 3480 g or 7 lbs. 11 oz. No stitches were necessary, estimated blood loss recorded at 250 mL's. Please see my dictated delivery note for details. This morning the patient is doing well. She is voiding, ambulating and passing flatus without difficulty. Vital signs are stable and she is afebrile. Fundus is firm and in the midline, symmetric and 18 week size. Breasts are not engorged. A prescription is written or a double electric breast pump per the patient's request. Plan is for patient to be discharged home later today. She is in very good condition for discharge home. I have reviewed with her briefly her options for contraception and we will discuss this further in the office. I have reminded her to continue taking her vitamin daily. She will call me with any fevers shakes or chills, foul smelling or copious lochia, with the passage of large blood clots, with any pain not alleviated by Motrin products, or indeed with any concerns. She will use ibuprofen, 200 mg pills, 3 every 6 hours as needed. Patient Condition at Discharge: Good Plan - Discharge Summary New Discharge Prescriptions: No Action Ued-Stpb-Aznuo Acid [-U Capsule (formulary)] 1 cap PO DAILY Discharge Medication List Adf-Ugzn-Vpyfp Acid [-U Capsule (formulary)] 1 cap PO DAILY [History] Follow up Appointment(s)/Referral(s): Dana Villegas MD [STAFF PHYSICIAN] - 6 Weeks Discharge Disposition: HOME SELF-CARE
[2017-07-14] MEDS: SENNOSIDES-DOCUSATE SODIUM 1 EACH TAB PO SCH ×2 (08:03→22:03)
[2017-07-14] MEDS: ACETAMINOPHEN TAB 325 MG TAB PO PRN ×2 (12:06→21:17)
[2017-07-14 21:23] VITALS: RESP 16
[2017-07-15] MEDS: SENNOSIDES-DOCUSATE SODIUM 1 EACH TAB PO SCH (07:14)
[2017-07-15] MEDS: IBUPROFEN 600 MG TAB PO PRN ×2 (07:14→13:52)
[2017-07-15 07:46] VITALS: BP 144/99; PULSE 72; TEMP 97.5
--- NOTE | 2017-07-15 07:49 | P.DS ---
Providers Date of admission: 07/13/17 06:19 Expected date of discharge: 07/15/17 Attending physician: Dnaa Villegas Primary care physician: Stated None Hospital Course: This is an addendum to the previously dictated discharge summary dated 2017. Patient's discharge was postponed secondary to the not being released by upsetter setter up. Cultures are still pending at this time. Patient however is doing well, and status remains very good for discharge home today. I once again reviewed all instructions as detailed yesterday. Patient will follow-up with me in the office in 6 weeks and call with any issues or difficulties. Patient Condition at Discharge: Good Plan - Discharge Summary New Discharge Prescriptions: No Action Htp-Hkbq-Oqqmp Acid [-U Capsule (formulary)] 1 cap PO DAILY Discharge Medication List Qzx-Lyrl-Czasy Acid [-U Capsule (formulary)] 1 cap PO DAILY [History] Follow up Appointment(s)/Referral(s): Dana Villegas MD [STAFF PHYSICIAN] - 6 Weeks Discharge Disposition: HOME SELF-CARE
[2017-07-15] MEDS: ACETAMINOPHEN TAB 325 MG TAB PO PRN (10:10)
[2017-07-15] MEDS ORDERED: DIPH,PERTUS(ACELL)TETVAC-LF 0.5 ML VIAL IM ONE (10:58)
== END 2017-07-15 15:20 | disposition home or self-care (01) | DRG 775 ==
LOC: 4FBP 06:19
PROVIDERS: ADMIT Obstetrics & Gynecology; ATTEND Obstetrics & Gynecology
PROC: 3E033VJ Introduction of Other Hormone into Peripheral Vein, Percutaneous Approach (ICD-10-PCS; principal; 2017-07-13)
PROC: 3E0R3NZ Introduction of Analgesics, Hypnotics, Sedatives into Spinal Canal, Percutaneous Approach (ICD-10-PCS; principal; 2017-07-13)
PROC: 00HU33Z Insertion of Infusion Device into Spinal Canal, Percutaneous Approach (ICD-10-PCS; principal; 2017-07-13)
PROC: 10907ZC Drainage of Amniotic Fluid, Therapeutic from Products of Conception, Via Natural or Artificial Opening (ICD-10-PCS; principal; 2017-07-13)
PROC: 10E0XZZ Delivery of Products of Conception, External Approach (ICD-10-PCS; principal; 2017-07-13)
DX: O99.824 Streptococcus B carrier state complicating childbirth (principal); O69.81X0 Labor and delivery complicated by cord around neck, without compression, not applicable or unspecified; Z37.0 Single live birth; Z3A.39 39 weeks gestation of pregnancy; Z87.891 Personal history of nicotine dependence
CPT/HCPCS: 85025; 88307; 90471; 90715

== ENCOUNTER 2018-07-13 20:40 | Emergency (ER) | payer BC ==
[2018-07-13 21:26] VITALS: TEMP 100.2
[2018-07-13] MEDS ORDERED: ACETAMINOPHEN TAB 500 MG TAB PO STA (21:32)
--- NOTE | 2018-07-13 21:58 | ED ---
General Adult HPI <Erin Alvarado P - Last Filed: 07/13/18 22:57> - General Source: patient, RN notes reviewed Mode of arrival: ambulatory Limitations: no limitations <Crow Lozano - Last Filed: 07/13/18 23:09> - General Chief complaint: Upper Respiratory Infection Stated complaint: 18 Weeks preg, fever Time Seen by Provider: 07/13/18 21:21 - History of Present Illness Initial comments: 27-year-old G for P3 female currently 18 weeks presents to the emergency department for a chief complaint of fever and cough. Patient states she started to have a cough and congestion the last night. She states that throughout the day this has started to get worse. Patient states she has achine ss in her legs and back. She states her arms are also achy. Patient states she checked her temperature at home and it was 103.2. Patient did not take Tylenol at that time. Patient states she has had a decreased appetite as well but is drinking fluids.patient denies chest pain. Denies shortness of breath. Patient denies any vaginal bleeding or cramping. Patient has no other complaints at thi s time including shortness of breath, chest pain, abdominal pain, nausea or vomiting, headache, or visual changes. (Crow Lozano) - Related Data Previous Rx's Medication Instructions Recorded Oseltamivir [Tamiflu] 75 mg PO Q12HR #10 cap 07/13/18 Allergies Allergy/AdvReac Type Severity Reaction Status Date / Time No Known Allergies Allergy Verified 07/13/18 21:39 Review of Systems ROS Other: All systems not noted in ROS Statement are negative. <Erin Alvarado P - Last Filed: 07/13/18 22:57> ROS Other: All systems not noted in ROS Statement are negative. <Crow Lozano P - Last Filed: 07/13/18 23:09> ROS Statement: Those systems with pertinent positive or pertinent negative responses have been documented in the HPI. Past Medical History Past Medical History: No Reported History Additional Past Medical History / Comment(s): migraines History of Any Multi-Drug Resistant Organisms: MRSA, VRE Date of last positivie culture/infection: 2011 MDRO Source:: arm/knee Past Surgical History: No Surgical Hx Reported Additional Past Surgical History / Comment(s): wisdom teeth, Additional Past Anesthesia/Blood Transfusion Reaction / Comment(s): no blood transfusion history Past Psychological History: Anxiety, Depression Smoking Status: Former smoker Past Alcohol Use History: None Reported Past Drug Use History: None Reported - Past Family History Mother History Unknown: Yes Additional Family Medical History / Comment(s): brain aneurysm <Crow Lozano P - Last Filed: 07/13/18 23:09> General Exam Limitations: no limitations General appearance: alert, in no apparent distress Head exam: Present: atraumatic, normocephalic, normal inspection Eye exam: Present: normal appearance, PERRL, EOMI. Absent: scleral icterus, conjunctival injection, periorbital swelling ENT exam: Present: normal exam, normal oropharynx, mucous membranes moist, TM's normal bilaterally, normal external ear exam Neck exam: Present: normal inspection, full ROM. Absent: tenderness, meningismus, lymphadenopathy Respiratory exam: Present: normal lung sounds bilaterally. Absent: respiratory distress, wheezes, rales, rhonchi, stridor Cardiovascular Exam: Present: regular rate, normal rhythm, normal heart sounds. Absent: systolic murmur, diastolic murmur, rubs, gallop, clicks GI/Abdominal exam: Present: soft, normal bowel sounds. Absent: distended, tenderness, guarding, rebound, rigid Neurological exam: Present: alert, oriented X3, CN II-XII intact Psychiatric exam: Present: normal affect, normal mood Skin exam: Present: warm, dry, intact, normal color. Absent: rash <Crow Lozano P - Last Filed: 07/13/18 23:09> Course Vital Signs 07/13/18 07/13/18 07/13/18 21:00 21:25 22:23 Temperature 99.8 F H 100.2 F H Pulse Rate 98 104 H Respiratory 18 16 Rate Blood Pressure 105/74 114/76 O2 Sat by Pulse 98 97 Oximetry Medical Decision Making <Erin Alvarado P - Last Filed: 07/13/18 22:57> <Crow Lozano P - Last Filed: 07/13/18 23:09> - Medical Decision Making The patient's gas treater Dr. Villegas who recommends patient be initiated on Tamiflu and I discussed this with the patient first dose of Tamiflu will be given in the emergency department she'll be provided a prescription for 5 days. Return parameters including any signs of dehydration were discussed. Suppor tive care with Tylenol and rehydration therapy were discussed. Patient was discharged home in stable condition (Erin Alvarado) 27-year-old female presents for cough and fever starting yesterday. No shortness of breath, no chest pain. Patient also having body aches. Influenza A is positive. I did offer IV hydration the patient but she states she is taking plenty of fluids at home and will continue to do so. Patient given Tamiflu per Dr. jennings. Patient will return here if she has any worsening symptoms. She'll follow up with primary care in 1-2 days. (Crow Lozano) - Lab Data Lab Results 07/13/18 Range/Units 21:54 Influenza Type A RNA Detected H (Not Detectd) Influenza Type B (PCR) Not Detected (Not Detectd) Disposition <Erin Alvarado - Last Filed: 07/13/18 22:57> Is patient prescribed a controlled substance at d/c from ED?: No Time of Disposition: 23:07 <Crow Lozano - Last Filed: 07/13/18 23:09> Clinical Impression: Influenza A Disposition: HOME SELF-CARE Condition: Good Instructions (If sedation given, give patient instructions): Influenza (ED) Additional Instructions: Please take Tamiflu as directed. Take Tylenol for fever. Drink plenty of fluids. Return immediately to the emergency department if you have any worse natali symptoms or signs of dehydration or are unable to tolerate by mouth. Prescriptions: Oseltamivir [Tamiflu] 75 mg PO Q12HR #10 cap Referrals: Hermes Yeung MD [Primary Care Provider] - 1-2 days
[2018-07-13 22:24] VITALS: RESP 16
[2018-07-13] MEDS ORDERED: OSELTAMIVIR 75 MG CAP PO STA (22:55)
[2018-07-13 23:23] VITALS: BP 133/84; PULSE 95
== END 2018-07-13 23:23 | disposition home or self-care (01) ==
LOC: EC 20:40
DX: O99.512 Diseases of the respiratory system complicating pregnancy, second trimester (principal); J10.1 Influenza due to other identified influenza virus with other respiratory manifestations; Z3A.18 18 weeks gestation of pregnancy; Z87.891 Personal history of nicotine dependence; Z86.14 Personal history of Methicillin resistant Staphylococcus aureus infection; Z86.69 Personal history of other diseases of the nervous system and sense organs
CPT/HCPCS: 87502; 99283

== ENCOUNTER → 2018-09-21 | Outpatient (CLI) | payer BC ==
[2018-09-21 14:04] LABS: HCT 35.1 % (34.0-46.0); MCH 27.7 pg (25.0-35.0); MCHC 31.3 g/dL (31.0-37.0); MCV 88.5 fL (80.0-100.0); Mean Platelet Volume 6.7; Platelet Count 344 k/uL (150-450); RBC 3.97 m/uL (3.80-5.40); RDW 13.9 % (11.5-15.5)
== END | disposition home or self-care (01) ==
LOC: LABWHC1 11:54
PROVIDERS: ATTEND Obstetrics & Gynecology
DX: Z34.82 Encounter for supervision of other normal pregnancy, second trimester (principal)
CPT/HCPCS: 36415; 82950; 85027

== ENCOUNTER 2018-12-01 | Outpatient (CLI) | payer BC ==
--- NOTE | 2018-12-01 15:28 | P.MSEPDOC ---
Presenting Problems - Arrival Data Date of Arrival on Unit: 12/01/18 Time of Arrival on Unit: 11:31 Mode of Transport: Ambulatory - Complaint OB-Reason for Admission/Chief Complaint: Possible Onset of Labor Comment: Contractons q5-7min for several hours Medical History - Information : 4 Para: 3 Term: 3 : 0 Abortions: Spontaneous or Elective: 0 Number of Living Children: 3 - Gestational Age Gestational Age by CARA (wks/days): 38 Weeks and 4 Days Review of Systems - Review of Systems Constitutional: No problems Breast: No problems ENT: No problems Cardiovascular: No problems Respiratory: No problems Gastrointestinal: No problems Genitourinary: No problems Musculoskeletal: No problems Neurological: No problems Skin: No problems Vital Signs - Temperature Temperature: 97.3 F Temperature Source: Temporal Artery Scan - Pulse Right Sitting Brachial Pulse Rate: 80 Pulse Assessment Method: Automatic Cuff - Respirations Respiratory Rate: 16 Oxygen Delivery Method: Room Air O2 Sat by Pulse Oximetry: 97 - Blood Pressure Right Arm Sitting Blood Pressure: 110/77 Blood Pressure Mean: 88 Blood Pressure Source: Automatic Cuff Medical Screen Scoring (Pre) - Cervical Exam Dilation: 1-3 cm = 1 Effacement: More than 50% = 2 Membranes: Intact - Uterine Contractions Frequency: > or = 36 weeks =2 Duration: > 40 seconds = 2 Intensity: N/A - Maternal Vital Signs Maternal Temperature: N/A Maternal Blood Pressure: N/A Signs of Preeclampsia: N/A Maternal Respirations: N/A - Maternal Trauma Maternal Trauma: N/A - Assessment - Baby A Baseline FHR: 130 Heart Rate - NICHD Category: Category I (Normal) = 0 NST: Reactive Position: N/A Station: N/A - Total Score - Baby A Total Score - Baby A: 7 - Total Score - Baby B Total Score - Baby B: 7 - Total Score - Baby C Total Score - Baby C: 7 - Level of Risk - Baby A Level of Risk - Baby A: Medium (6-9) - Level of Risk - Baby B Level of Risk - Baby B: Medium (6-9) - Level of Risk - Baby C Level of Risk - Baby C: Medium (6-9) Physician Notification (Pre) - Physician Notified Physician Notified Date: 12/01/18 Physician Notified Time: 12:57 Physician/Practitioner Notifed:: Xander Spoke With: Xander New Order Received: Yes - Notification Comment Comment: Spk c\Dr. Terrell, advsd , 38 07/25, presents to triage c/o contrx 5- 7min x several hours. SVE Thursday in office 3.5/-2. Same on initial and repeat exam in triage, contrx 3-5min, mild, pt states she would like to be d/c and return if contrx intensity worsens. Pt to be d/c home, triage d/c instructions. Disposition - Disposition OB Disposition: Triage, Discharge to home, Written follow up instructions reviewed I agree with the RN Medical Screening Exam: Yes Risk & Benefit of care provided described in d/c instruction: Yes Diagnosis: FALSE LABOR AT OR AFTER 37 COMPLETED WEEKS OF GESTATION
== END 2018-12-01 13:02 | disposition home or self-care (01) ==
CPT/HCPCS: 59025; 99213

== ENCOUNTER 2018-12-08 06:07 | Inpatient (IN) | payer BC ==
--- NOTE | 2018-12-07 21:16 | P.HPOB ---
History of Present Illness H&P Date: 12/07/18 Chief Complaint: Induction of labor This is a 28-year-old female 5 para 3 with an estimated date of confinement of 12/11/2018, estimated gestational age of 39-4/7 weeks, who presents to labor and delivery for induction of labor. She has been experiencing irregular frequent contractions and pressure. She denies any rupture of membranes. course has been uncomplicated. Other than the left EIF diagnosed on anatomy scan. She did have a quad screen that was negative. labs: Hepatitis B surface antigen-negative RPR-nonreactive Rubella-immune Blood type-A+ Antibody screen-negative HIV-nonreactive Hemoglobin-12.7 Quad screen-negative Random glucose-79 One hour Glucola-86 Group B streptococcus-negative, however history of positive in previous . Obstetrical history: . History of 3 vaginal deliveries at term. History of 1 miscarriage. Gynecologic history: No history of sexually transmitted diseases. Social history: She is single. 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 Review of Systems Constitutional: Denies chills, Denies fever Eyes: denies blurred vision, denies pain Ears, nose, mouth and throat: Denies headache, Denies sore throat Cardiovascular: Denies chest pain, Denies shortness of breath Respiratory: Denies cough Gastrointestinal: Reports abdominal pain (Irregular contractions) Genitourinary: Reports pelvic pain, Reports Musculoskeletal: Reports low back pain Integumentary: Denies pruritus, Denies rash Neurological: Denies numbness, Denies weakness Past Medical History Past Medical History: No Reported History Additional Past Medical History / Comment(s): migraines History of Any Multi-Drug Resistant Organisms: MRSA, VRE Date of last positivie culture/infection: 2011 MDRO Source:: arm/knee Additional Past Surgical History / Comment(s): wisdom teeth, Additional Past Anesthesia/Blood Transfusion Reaction / Comment(s): no blood transfusion history Smoking Status: Never smoker Past Alcohol Use History: None Reported Past Drug Use History: None Reported - Past Family History Mother History Unknown: Yes Additional Family Medical History / Comment(s): brain aneurysm Medications and Allergies Home Medications Medication Instructions Recorded Confirmed Type Pnv No.95/Ferrous Fum/Folic AC 1 each PO DAILY 12/01/18 12/01/18 History [ Multivitamin Tablet] Allergies Allergy/AdvReac Type Severity Reaction Status Date / Time No Known Allergies Allergy Verified 12/01/18 12:46 Exam Osteopathic Statement: *. No significant issues noted on an osteopathic structural exam other than those noted in the History and Physical/Consult. HEENT: Within normal limits Heart: Regular rate and rhythm Lungs: Clear to auscultation bilaterally Abdomen: Cervix: 4 cm/70%/-2 station heart tones: 140s by Doppler Extremities: Negative Homans Assessment and Plan (1) 39 weeks gestation of Status: Acute Code(s): Z3A.39 - 39 WEEKS GESTATION OF SNOMED Code(s): 71445206 (2) Group B Streptococcus carrier, +RV culture, currently Status: Acute Code(s): O99.820 - STREPTOCOCCUS B CARRIER STATE COMPLICATING SNOMED Code(s): 0881260946189 Plan: Proceed with oxytocin induction of labor. Antibiotic prophylaxis for history of group B streptococcus. Expectant management. Epidural anesthesia if desired.
[2018-12-08] MEDS ORDERED: OXYTOCIN 10 UNIT/ML 1 ML VIAL IM PRN (06:11)
[2018-12-08] MEDS ORDERED: LIDOCAINE 0.5% (PF) 5 MG/ML (50 ML SDV) SQ PRN (06:11)
[2018-12-08] MEDS ORDERED: OXYTOCIN 30 UNITS/500 ML NS 30 UNIT in SALINE 1 500ML.BAG IV SCH (06:11)
[2018-12-08] MEDS ORDERED: METHYLERGONOVINE 0.2 MG/ML 1 ML AMP IM PRN (06:11)
[2018-12-08] MEDS ORDERED: CARBOPROST TROMETHAMINE 250 MCG/ML 1 ML AMP IM PRN (06:11)
[2018-12-08] MEDS ORDERED: LIDOCAINE 1% 20 ML VIAL (10MG/ML) FOR IV START INTRADERMA PRN (06:11)
[2018-12-08] MEDS ORDERED: TERBUTALINE 1 MG/ML VIAL SQ PRN (06:11)
[2018-12-08 06:21] VITALS: BMI 35.2
[2018-12-08] MEDS ORDERED: AMPICILLIN 2,000 MG in SODIUM CHLORIDE 0.9% 100 ML IVPB ONE (06:30)
[2018-12-08] MEDS: LACTATED RINGERS 1,000 ML IV SCH ×2 (06:33→12:51)
[2018-12-08 06:37] LABS: Basophils % (A) 0 %; Eosinophils # (A) 0.2 k/uL (0-0.7); Eosinophils % (A) 2 %; HCT 35.3 % (34.0-46.0); HGB 11.5 gm/dL (11.4-16.0); Lymphocytes # (A) 2.1 k/uL (1.0-4.8); Lymphocytes % (A) 21 %; MCH 26.7 pg (25.0-35.0); MCHC 32.5 g/dL (31.0-37.0); MCV 82.2 fL (80.0-100.0); Mean Platelet Volume 7.3; Monocytes # (A) 0.6 k/uL (0-1.0); Monocytes % (A) 6 %; Neutrophils # (A) 6.7 k/uL (1.3-7.7); Neutrophils % (A) 68 %; Platelet Count 356 k/uL (150-450); RBC 4.29 m/uL (3.80-5.40); RDW 14.6 % (11.5-15.5); WBC 9.8 k/uL (3.8-10.6)
[2018-12-08] MEDS ORDERED: BUTORPHANOL 1 MG/ML 1 ML VIAL IV PRN (09:23)
[2018-12-08 09:58] LABS: Amphetamine Screen,Urine Not Detected (NotDetected); Barbiturate Screen,Urine Not Detected (NotDetected); Benzodiazepines Screen,Urine Not Detected (NotDetected); Cocaine Screen,Urine Not Detected (NotDetected); Methadone Screen, Urine Not Detected (NotDetected); Opiate Screen,Urine Not Detected (NotDetected); Oxycodone Screen, Urine Not Detected (NotDetected); Phencyclidine Screen,Urine Not Detected (NotDetected); Tricyclic Antidepressant,Urine Not Detected (NotDetected); Urn Cannabinoid Scrn Not Detected (NotDetected)
[2018-12-08] MEDS ORDERED: diphenhydrAMINE 50 MG CAP PO PRN (10:45)
[2018-12-08] MEDS ORDERED: OXYTOCIN 20 UNITS/1000 ML NS 1,000 ML IV SCH (10:45)
[2018-12-08] MEDS ORDERED: ZOLPIDEM 5 MG TAB PO PRN (10:45)
[2018-12-08] MEDS ORDERED: WITCH HAZEL 1 EACH MED..PAD TOPICAL PRN (10:45)
[2018-12-08] MEDS ORDERED: LANOLIN CREAM 5 GM TUBE TOPICAL PRN (10:45)
[2018-12-08] MEDS ORDERED: BENZOCAINE/MENTHOL SPRAY 1 GM/SPRAY AEROSOL TOPICAL PRN (10:45)
[2018-12-08] MEDS ORDERED: diphenhydrAMINE 25 MG CAP PO PRN (10:45)
[2018-12-08] MEDS ORDERED: diphenhydrAMINE 50 MG/ML 1 ML VIAL IVP PRN ×2 (10:45)
[2018-12-08] MEDS ORDERED: HYDROCORTISONE 2.5% RECTAL CREAM 30 GM TUBE RECTAL PRN (10:45)
[2018-12-08] MEDS ORDERED: SIMETHICONE 80 MG CHEWABLE PO PRN (10:45)
[2018-12-08] MEDS: IBUPROFEN 600 MG TAB PO PRN ×2 (10:53→17:20)
[2018-12-08] MEDS ORDERED: AMPICILLIN 1,000 MG in SODIUM CHLORIDE 0.9% 50 ML IVPB SCH (11:00)
[2018-12-08 12:05] VITALS: RESP 18
--- NOTE | 2018-12-08 13:03 | P.PROBDLV ---
Vaginal Delivery Note - . Vaginal Delivery Note: The patient progressed to complete dilation after oxytocin induction of labor and artificial rupture of membranes with clear fluid noted. She did receive antibiotic prophylaxis while in labor due to history of group B streptococcus however she was negative during this . She did receive 1 dose of Stadol. Once reaching complete dilation, she began pushing. 's head came to a crown. With one further push, the infant's head delivered across the perineum and a left occiput anterior lie followed by the anterior shoulder. Nose and mouth were bulb suctioned at the perineum. With one remaining push, the remainder the easily delivered and was placed on mother's abdomen. Cord was clamped and cut and was taken to warmer for evaluation. A viable male is noted with scores of 9 at 1 minute and 9 at 5 minutes and weight is found to be 7 lbs. 13 oz. Placenta delivered shortly thereafter, intact, with a three-vessel cord. Uterus contracted well after oxytocin was given and massage was carried out. Inspection of the perineum revealed no perineal lacerations. Estimated blood loss is approximately 150 mL's. Both mother and are in stable condition.
[2018-12-08] MEDS: ACETAMINOPHEN TAB 325 MG TAB PO PRN ×2 (14:07→19:55)
[2018-12-08] MEDS: SENNOSIDES-DOCUSATE SODIUM 1 EACH TAB PO SCH (19:55)
[2018-12-09] MEDS: IBUPROFEN 600 MG TAB PO PRN ×2 (00:17→08:36)
[2018-12-09] MEDS: ACETAMINOPHEN TAB 325 MG TAB PO PRN ×2 (01:59→12:44)
--- NOTE | 2018-12-09 07:10 | P.DS ---
Providers Date of admission: 12/08/18 06:07 Expected date of discharge: 12/09/18 Attending physician: Lubna Terrell Primary care physician: Stated None - Discharge Diagnosis(es) (1) 39 weeks gestation of Current Visit: No Status: Acute (2) Group B Streptococcus carrier, +RV culture, currently Current Visit: No Status: Acute Hospital Course: This is a 28-year-old female 5 para 3 who presented for induction of labor. She underwent oxytocin induction of labor and delivered vaginally a viable male infant with scores of 9 at 1 minute and 9 at 5 minutes and infant weight of 7 lbs. 13 oz. Her course has been uncomplicated. She is bottle feeding. Lochia is decreasing. Pain is fairly well controlled. Vital signs are stable. Abdomen is soft with fundus firm and nontender. Extremities show negative Homans. Impression is status post vaginal delivery day #1. Plan is to discharge home today. Routine instructions are given. She is advised follow-up in the office in 6 weeks for a check. She is advised to call the office if she has any further questions or concerns prior to her appointment time. Procedures: Oxytocin induction of labor Spontaneous vaginal delivery of a viable male infant on 12/08/2018 Patient Condition at Discharge: Stable Plan - Discharge Summary New Discharge Prescriptions: New Ibuprofen [Motrin] 600 mg PO Q6HR PRN #60 tab PRN Reason: Mild Pain Or Fever >= 100.5 Continue Pnv No.95/Ferrous Fum/Folic AC [ Multivitamin Tablet] 1 each PO DAILY Discharge Medication List Pnv No.95/Ferrous Fum/Folic AC [ Multivitamin Tablet] 1 each PO DAILY 12/01/18 [History] Ibuprofen [Motrin] 600 mg PO Q6HR PRN #60 tab 12/09/18 [Rx] Follow up Appointment(s)/Referral(s): Lubna Terrell DO [Doctor of Osteopathic Medicine] - 6 Weeks Activity/Diet/Wound Care/Special Instructions: Instructions 1. Do not begin any exercise program for 3 weeks. 2. Do not resume sexual relations for 3 weeks or longer if uncomfortable. 3. You may take tub baths or showers at any time. 4. You may use tampons if desired after 3 weeks. 5. Keep the area of episiotomy (stitches) clean and dry. 6. If you are not nursing, wear a good fitting, supportive bra during the day and limit fluid intake for at least 1 week to prevent breast engorgement. 7. Call the office, [phone], within the next week to make appointment for your 6 week checkup if it has not already been made. 8. Report any of the following occurrences to the doctor promptly: a. Heavy, excessive bleeding b. Chills, fever c. Burning or frequency of urination d. Pain or redness and breasts if nursing e. Increasing pain or swelling in episiotomy (stitches). In addition to the above instructions, the following additional should be followed: 1. No heavy lifting or straining (exercising) until after 6 week checkup. 2. Keep abdominal incision clean and dry: You may wear a dressing if more comfortable. 3. Make office appointment for 10 days after going home or as instructed by her doctor. Discharge Disposition: HOME SELF-CARE
[2018-12-09 07:21] LABS: Basophils % (A) 0 %; Eosinophils # (A) 0.2 k/uL (0-0.7); Eosinophils % (A) 2 %; HCT 32.4 % (34.0-46.0); HGB 10.5 gm/dL (11.4-16.0); Lymphocytes # (A) 1.9 k/uL (1.0-4.8); Lymphocytes % (A) 19 %; MCH 27.2 pg (25.0-35.0); MCHC 32.5 g/dL (31.0-37.0); MCV 83.5 fL (80.0-100.0); Mean Platelet Volume 7.3; Monocytes # (A) 0.6 k/uL (0-1.0); Monocytes % (A) 6 %; Neutrophils % (A) 71 %; Platelet Count 306 k/uL (150-450); RBC 3.88 m/uL (3.80-5.40); RDW 14.4 % (11.5-15.5); WBC 9.9 k/uL (3.8-10.6)
[2018-12-09] MEDS: SENNOSIDES-DOCUSATE SODIUM 1 EACH TAB PO SCH (08:36)
[2018-12-09 10:30] VITALS: BP 122/85; PULSE 85; TEMP 98.3
== END 2018-12-09 13:15 | disposition home or self-care (01) | DRG 807 ==
LOC: 4FBP 06:07
PROVIDERS: ADMIT Obstetrics & Gynecology; ATTEND Obstetrics & Gynecology
PROC: 10E0XZZ Delivery of Products of Conception, External Approach (ICD-10-PCS; principal; 2018-12-08)
PROC: 3E033VJ Introduction of Other Hormone into Peripheral Vein, Percutaneous Approach (ICD-10-PCS; 2018-12-08)
PROC: 10907ZC Drainage of Amniotic Fluid, Therapeutic from Products of Conception, Via Natural or Artificial Opening (ICD-10-PCS; 2018-12-08)
DX: O80 Encounter for full-term uncomplicated delivery (principal); Z37.0 Single live birth; Z3A.39 39 weeks gestation of pregnancy; Z22.330 Carrier of Group B streptococcus; Z79.899 Other long term (current) drug therapy; Z86.14 Personal history of Methicillin resistant Staphylococcus aureus infection; Z86.69 Personal history of other diseases of the nervous system and sense organs; Z86.19 Personal history of other infectious and parasitic diseases; Z82.49 Family history of ischemic heart disease and other diseases of the circulatory system
CPT/HCPCS: 80306; 85025; 86850; 86900; 86901

== ENCOUNTER 2020-01-13 06:04 | Outpatient (CLI) | payer BC, OTHER ==
[2020-01-13 08:13] VITALS: BP 133/78; PULSE 78; RESP 16; TEMP 96.4
--- NOTE | 2020-01-16 19:32 | P.MSEPDOC ---
Presenting Problems - Arrival Data Date of Arrival on Unit: 01/13/20 Time of Arrival on Unit: 07:25 Mode of Transport: Ambulatory - Complaint OB-Reason for Admission/Chief Complaint: Possible Onset of Labor Medical History - Information : 8 Para: 5 Term: 5 : 0 Abortions: Spontaneous or Elective: 2 Number of Living Children: 5 - Gestational Age Gestational Age by CARA (wks/days): 37 Weeks and 5 Days Review of Systems - Review of Systems Constitutional: No problems Breast: No problems ENT: No problems Cardiovascular: No problems Respiratory: No problems Gastrointestinal: No problems Genitourinary: No problems Musculoskeletal: No problems Neurological: No problems Skin: No problems Vital Signs - Temperature Temperature: 96.4 F Temperature Source: Tympanic - Pulse Right Brachial Pulse Rate: 78 Pulse Assessment Method: Automatic Cuff - Respirations Respiratory Rate: 16 Oxygen Delivery Method: Room Air O2 Sat by Pulse Oximetry: 98 - Blood Pressure Right Arm Blood Pressure: 133/78 Blood Pressure Mean: 96 Blood Pressure Source: Automatic Cuff Medical Screen Scoring (Pre) - Cervical Exam Dilation: 1-3 cm = 1 Effacement: More than 50% = 2 Membranes: Intact - Uterine Contractions Frequency: > or = 36 weeks =2 Duration: N/A Intensity: N/A - Maternal Vital Signs Maternal Temperature: N/A Maternal Blood Pressure: N/A Signs of Preeclampsia: N/A Maternal Respirations: N/A - Maternal Trauma Maternal Trauma: N/A - Assessment - Baby A Baseline FHR: 125 Heart Rate - NICHD Category: Category I (Normal) = 0 NST: Reactive Position: N/A Station: N/A - Total Score - Baby A Total Score - Baby A: 5 - Total Score - Baby B Total Score - Baby B: 5 - Total Score - Baby C Total Score - Baby C: 5 - Level of Risk - Baby A Level of Risk - Baby A: Low (0-5) - Level of Risk - Baby B Level of Risk - Baby B: Low (0-5) - Level of Risk - Baby C Level of Risk - Baby C: Low (0-5) Physician Notification (Pre) - Physician Notified Physician Notified Date: 01/13/20 Physician Notified Time: 07:25 New Order Received: Yes - Notification Comment Comment: d/c home Disposition - Disposition OB Disposition: Discharge to home Discharge Date: 01/13/20 Discharge Time: 07:30 I agree with the RN Medical Screening Exam: Yes Risk & Benefit of care provided described in d/c instruction: Yes Diagnosis: FALSE LABOR AT OR AFTER 37 COMPLETED WEEKS OF GESTATION
== END 2020-01-13 07:30 | disposition home or self-care (01) ==
LOC: FBPOP 06:04
PROVIDERS: ATTEND Obstetrics & Gynecology
DX: O47.1 False labor at or after 37 completed weeks of gestation (principal); Z3A.37 37 weeks gestation of pregnancy
CPT/HCPCS: 59025; G0463; 99213

== ENCOUNTER 2020-01-20 01:42 | Inpatient (IN) | payer BC, OTHER ==
[2020-01-20] MEDS ORDERED: METHYLERGONOVINE 0.2 MG/ML 1 ML AMP IM PRN (02:07)
[2020-01-20] MEDS ORDERED: TERBUTALINE 1 MG/ML VIAL SQ PRN (02:07)
[2020-01-20] MEDS ORDERED: CARBOPROST TROMETHAMINE 250 MCG/ML 1 ML AMP IM PRN (02:07)
[2020-01-20] MEDS ORDERED: LIDOCAINE 0.5% (PF) 5 MG/ML (50 ML SDV) SQ PRN (02:07)
[2020-01-20] MEDS ORDERED: OXYTOCIN 10 UNIT/ML 1 ML VIAL IM PRN (02:07)
[2020-01-20] MEDS ORDERED: LACTATED RINGERS 1,000 ML IV SCH ×2 (02:15)
[2020-01-20 02:30] LABS: Basophils % (A) 0 %; Eosinophils # (A) 0.1 k/uL (0-0.7); Eosinophils % (A) 1 %; HCT 34.4 % (34.0-46.0); Lymphocytes # (A) 1.3 k/uL (1.0-4.8); Lymphocytes % (A) 19 %; MCH 25.6 pg (25.0-35.0); MCHC 31.9 g/dL (31.0-37.0); MCV 80.2 fL (80.0-100.0); Mean Platelet Volume 7.8; Monocytes # (A) 0.4 k/uL (0-1.0); Monocytes % (A) 6 %; Neutrophils # (A) 4.8 k/uL (1.3-7.7); Neutrophils % (A) 70 %; Platelet Count 296 k/uL (150-450); RBC 4.29 m/uL (3.80-5.40); RDW 14.6 % (11.5-15.5); WBC 6.8 k/uL (3.8-10.6)
--- NOTE | 2020-01-20 02:34 | P.HPOB ---
History of Present Illness H&P Date: 01/20/20 Chief Complaint: Contractions This patient is a 29-year-old 8 para 4 female estimated date of confinement 02/03/2020 estimated gestational age 38-2/7 weeks who presents to labor and delivery with complaints of contractions that began approximately 3 hours ago. Patient was initially 7 cm dilated on admission and is now 9 cm dilated and found to be in active labor. care is per Dr. rAcos appears to be complicated by late to seek care. Her first visit was at 20 weeks. care otherwise appears to be uncomplicated. Review of Systems Genitourinary: Reports Menstruation: Reports amenorrhea Past Medical History Past Medical History: No Reported History Additional Past Medical History / Comment(s): migraines; patient's had 4 previous vaginal deliveries. History of Any Multi-Drug Resistant Organisms: MRSA, VRE Date of last positivie culture/infection: 2011 MDRO Source:: arm/knee Past Surgical History: No Surgical Hx Reported Additional Past Surgical History / Comment(s): wisdom teeth, Past Anesthesia/Blood Transfusion Reactions: No Reported Reaction Additional Past Anesthesia/Blood Transfusion Reaction / Comment(s): no blood tra nsfusion history Past Psychological History: Anxiety, Depression Smoking Status: Never smoker Past Alcohol Use History: None Reported Past Drug Use History: None Reported - Past Family History Mother History Unknown: Yes Additional Family Medical History / Comment(s): brain aneurysm Medications and Allergies Home Medications Medication Instructions Recorded Confirmed Type Pnv No.95/Ferrous Fum/Folic AC 1 each PO DAILY 12/01/18 01/20/20 History [ Multivitamin Tablet] Allergies Allergy/AdvReac Type Severity Reaction Status Date / Time No Known Allergies Allergy Verified 01/20/20 02:00 Exam Vital Signs Temp Pulse Resp BP 01/20/20 01:57 97.0 F L 83 18 154/86 Intake and Output 01/19/20 01/19/20 01/20/20 14:59 22:59 06:59 Other: Weight 86.183 kg - OBG Physical Exam Abdomen: bowel sounds normal Vulva: both: normal Vagina: normal moisture, no discharge Cervix: no lesion (Cervix is 9 cm dilated completely effaced 0 station with a bulging bag), no discharge Uterus: enlarged Results blood work shows she is A positive, rubella immune, RPR nonreactive, hepatitis B negative, HIV is nonreactive, quad screen appears to been negative, anatomy ultrasounds have been normal, group B strep was negative but patient does have a history of positive in previous Assessment and Plan Assessment: This is a 29-year-old 8 para 4 female 38-2/7 weeks gestation admitted to labor and delivery in active labor. She has a negative group B strep with history of positive therefore is given IV antibiotics. A she did request an epidural however patient immediately went to 9 cm dilated and understands she is not a candidate for that at this time. Most likely will proceed with vaginal delivery soon. (1) 38 weeks gestation of Current Visit: Yes Status: Acute Code(s): Z3A.38 - 38 WEEKS GESTATION OF SNOMED Code(s): 78048052 (2) Normal labor Current Visit: Yes Status: Acute Code(s): O80 - ENCOUNTER FOR FULL-TERM UNCOMPLICATED DELIVERY; Z37.9 - OUTCOME OF DELIVERY, UNSPECIFIED SNOMED Code(s): 28624944
--- NOTE | 2020-01-20 02:45 | P.PROBDLV ---
Vaginal Delivery Note - . Vaginal Delivery Note: Normal spontaneous vaginal delivery viable female infant Apgars 9 and 9 delivery time is 0237 hours. Please see dictated H&P for intimate details of this patient's admission. Brief summary this is a 29-year-old 5 para 4 female 38 weeks gestation admitted to labor and delivery in active labor. Patient presentation was 7 cm approximately 15 minutes was 9 cm and had artificial rupture membranes for clear fluid. I did order antibiotics for her however labor was so quick she did not receive them. Patient quickly got to complete and with 1 push pushes the head to the perineum. Posterior perineum was supported and we have controlled delivery of the 's head over the intact perineum. Patient's position was right occiput anterior. With gentle downward traction we then have deliver the anterior and posterior shoulder and rest this 's body. Is a vigorous viable female infant Apgars are 9 and 9 delivery time is 0237 hours. After delivery of the the umbilical cord is doubly clamped and cut and appears to be trivascular. Placenta spontaneously delivered intact. Estimated blood loss is 100 mL. There are no lacerations and no repair is required. Infant and mother stable delivery room. All counts correct 3. There are no complications.
[2020-01-20] MEDS ORDERED: diphenhydrAMINE 50 MG/ML 1 ML VIAL IVP PRN (02:46)
[2020-01-20] MEDS ORDERED: diphenhydrAMINE 25 MG CAP PO PRN (02:46)
[2020-01-20] MEDS ORDERED: bisacodyL 10 MG SUPP RECTAL PRN (02:46)
[2020-01-20] MEDS ORDERED: ZOLPIDEM 5 MG TAB PO PRN (02:46)
[2020-01-20] MEDS ORDERED: BENZOCAINE/MENTHOL SPRAY 1 GM/SPRAY AEROSOL TOPICAL PRN (02:46)
[2020-01-20] MEDS ORDERED: LANOLIN CREAM 5 GM TUBE TOPICAL PRN (02:46)
[2020-01-20] MEDS ORDERED: SIMETHICONE 80 MG CHEWABLE PO PRN (02:46)
[2020-01-20] MEDS ORDERED: HYDROCORTISONE 2.5% RECTAL CREAM 30 GM TUBE RECTAL PRN (02:46)
[2020-01-20 02:48] LABS: ALT 11 U/L (4-34); AST 22 U/L (14-36); African American GFR (CKD) >90 (>60 ml/min/1.73 sqM); Blood Urea Nitrogen 6 mg/dL (7-17); LDH 424 U/L (313-618); Non-African American GFR(CKD) >90 (>60 ml/min/1.73 sqM); Uric Acid 4.4 mg/dL (3.7-7.4)
[2020-01-20] MEDS ORDERED: AMPICILLIN 2,000 MG in SODIUM CHLORIDE 0.9% 100 ML IVPB ONE (03:00)
[2020-01-20] MEDS ORDERED: OXYTOCIN 20 UNITS/1000 ML NS 1,000 ML IV SCH (03:00)
[2020-01-20] MEDS: IBUPROFEN 600 MG TAB PO PRN ×4 (03:04→22:20)
[2020-01-20] MEDS: ACETAMINOPHEN TAB 325 MG TAB PO PRN ×4 (03:45→20:14)
[2020-01-20] MEDS: SENNOSIDES-DOCUSATE SODIUM 1 EACH TAB PO SCH ×2 (09:03→20:15)
[2020-01-21] MEDS: ACETAMINOPHEN TAB 325 MG TAB PO PRN ×2 (01:06→07:35)
[2020-01-21] MEDS: IBUPROFEN 600 MG TAB PO PRN (03:53)
[2020-01-21 08:08] VITALS: BP 120/74; PULSE 68; RESP 16; TEMP 97.8
[2020-01-21] MEDS: SENNOSIDES-DOCUSATE SODIUM 1 EACH TAB PO SCH (08:11)
--- NOTE | 2020-01-21 11:45 | P.DS ---
Providers Date of admission: 01/20/20 01:53 Expected date of discharge: 01/21/20 Attending physician: Lubna Terrell Primary care physician: Stated None Hospital Course: 29-year-old female 5 para 4 at 38-0/7 weeks who presented with active labor. She delivered vaginally a viable female on 01/20/2020 with scores of 9 at 1 minute and 9 at 5 minutes and weight of 7 pounds 2.3 ounces. Her course has been uncomplicated. She is breast-feeding. Lochia is decreasing. Her pain is well-controlled. Vital signs are stable. Abdomen is soft with fundus firm and nontender. Extremities show negative Marcelle ans. Impression is status post vaginal delivery day #1. Plan is to discharge home later today. Routine instructions are given. She will be given a prescription for ibuprofen. She has already received a breast pump. She is advised to follow up in the office in 6 weeks for a check. She is advised to call the office if she has any further questions or concerns prior to her appointment time. Procedures: Spontaneous vaginal delivery of a viable female on 01/20/2020 Patient Condition at Discharge: Stable Plan - Discharge Summary New Discharge Prescriptions: New Ibuprofen [Motrin] 600 mg PO Q6HR PRN #60 tab PRN Reason: Mild Pain Or Fever >= 100.5 Continue Pnv No.95/Ferrous Fum/Folic AC [ Multivitamin Tablet] 1 each PO DAILY Discharge Medication List Pnv No.95/Ferrous Fum/Folic AC [ Multivitamin Tablet] 1 each PO DAILY 12/01/18 [History] Ibuprofen [Motrin] 600 mg PO Q6HR PRN #60 tab 01/21/20 [Rx] Follow up Appointment(s)/Referral(s): Lubna Terrell DO [Doctor of Osteopathic Medicine] - 6 Weeks Activity/Diet/Wound Care/Special Instructions: Instructions 1. Do not begin any exercise program for 3 weeks. 2. Do not resume sexual relations for 3 weeks or longer if uncomfortable. 3. You may take tub baths or showers at any time. 4. You may use tampons if desired after 3 weeks. 5. Keep the area of episiotomy (stitches) clean and dry. 6. If you are not nursing, wear a good fitting, supportive bra during the day and limit fluid intake for at least 1 week to prevent breast engorgement. 7. Call the office, [phone], within the next week to make appointment for your 6 week checkup if it has not already been made. 8. Report any of the following occurrences to the doctor promptly: a. Heavy, excessive bleeding b. Chills, fever c. Burning or frequency of urination d. Pain or redness and breasts if nursing e. Increasing pain or swelling in episiotomy (stitches). In addition to the above instructions, the following additional should be followed: 1. No heavy lifting or straining (exercising) until after 6 week checkup. 2. Keep abdominal incision clean and dry: You may wear a dressing if more comfortable. 3. Make office appointment for 10 days after going home or as instructed by her doctor. Discharge Disposition: HOME SELF-CARE
== END 2020-01-21 12:45 | disposition home or self-care (01) | DRG 807 ==
LOC: FBPOP 01:42 → 4FBP 01:53
PROVIDERS: ADMIT Obstetrics & Gynecology; ATTEND Obstetrics & Gynecology
PROC: 10E0XZZ Delivery of Products of Conception, External Approach (ICD-10-PCS; principal; 2020-01-20)
DX: O99.354 Diseases of the nervous system complicating childbirth (principal); Z37.0 Single live birth; O99.344 Other mental disorders complicating childbirth; F32.9 Major depressive disorder, single episode, unspecified; F41.9 Anxiety disorder, unspecified; G43.909 Migraine, unspecified, not intractable, without status migrainosus; Z3A.38 38 weeks gestation of pregnancy; Z86.14 Personal history of Methicillin resistant Staphylococcus aureus infection; Z82.49 Family history of ischemic heart disease and other diseases of the circulatory system
CPT/HCPCS: 82565; 83615; 84450; 84460; 84520; 84550; 85025; 86850; 86900; 86901

== ENCOUNTER 2020-05-08 06:34 | Day surgery (SDC) | payer OTHER ==
--- NOTE | 2020-05-07 19:34 | P.HPOB ---
History of Present Illness H&P Date: 05/07/20 Chief Complaint: Family planning This is a 29 y.o. female, 8, para 5, who presents for laparoscopic bilateral tubal ligation for family planning. She delivered her last child in January, and desires permanent sterilization. OB Hx: . History of 5 vaginal deliveries and 3 miscarriages. Silver Wrapper Hx: No hx of STDs. Social Hx: Single with steady boyfriend. Unemployed. Review of Systems Constitutional: Denies chills, Denies fever Eyes: denies blurred vision, denies pain Ears, nose, mouth and throat: Denies headache, Denies sore throat Cardiovascular: Denies chest pain, Denies shortness of breath Respiratory: Denies cough Gastrointestinal: Denies abdominal pain, Denies diarrhea, Denies nausea, Denies vomiting Genitourinary: Denies dysuria, Denies hematuria Menstruation: Reports menses 1-7 days Musculoskeletal: Denies myalgias Integumentary: Denies pruritus, Denies rash Neurological: Denies numbness, Denies weakness Psychiatric: Denies anxiety, Denies depression Past Medical History Past Medical History: GERD/Reflux Additional Past Medical History / Comment(s): migraines, History of Any Multi-Drug Resistant Organisms: MRSA, VRE Date of last positivie culture/infection: 2012 MDRO Source:: rt arm/rt knee Past Surgical History: No Surgical Hx Reported Additional Past Surgical History / Comment(s): wisdom teeth, Past Anesthesia/Blood Transfusion Reactions: No Reported Reaction Additional Past Anesthesia/Blood Transfusion Reaction / Comment(s): no blood transfusion history Past Psychological History: No Psychological Hx Reported Smoking Status: Never smoker Past Alcohol Use History: None Reported Past Drug Use History: None Reported - Past Family History Mother History Unknown: Yes Additional Family Medical History / Comment(s): brain aneurysm Medications and Allergies Home Medications Medication Instructions Recorded Confirmed Type No Known Home Medications 05/03/20 05/08/20 History Allergies Allergy/AdvReac Type Severity Reaction Status Date / Time No Known Allergies Allergy Verified 05/08/20 06:55 Exam Osteopathic Statement: *. No significant issues noted on an osteopathic structural exam other than those noted in the History and Physical/Consult. HEENT: within normal limits Heart: regular rate and rhythm Lungs: clear to auscultation Abdomen: soft, non-tender Pelvic: uterus small, retroverted, non-tender with no adnexal masses or tender. Extremities: neg. Damon's Assessment and Plan (1) Family planning Current Visit: No Status: Acute Code(s): Z30.09 - ENCOUNTER FOR OTH GENERAL CNSL AND ADVICE ON CONTRACEPTION SNOMED Code(s): 268956268 Plan: Proceed with laparoscopic bilateral tubal ligation via fulgaration. I have discussed the risks, benefits, and alternative therapies for the above- mentioned procedure and for both sedation/anesthesia as well as necessary blood products administration, if indicated, as they pertain to this patient. The patient has indicated her understanding and acceptance of the risks and procedures discussed.
[~2020-05-08 06:34] MED LIST: DEXAMETHASONE SOD PHOSPHATE 4 MG/ML 1 ML VIAL IV ONE; LACTATED RINGERS 1,000 ML IV SCH; LIDOCAINE 1% (10MG/ML) FOR IV START INTRADERMA PRN; MIDAZOLAM 2 MG/2 ML VIAL IV PRN; ONDANSETRON 4 MG/2 ML VIAL IVP ONE; Pre Op ABX Message 1 EACH MISC MISCELLANE ONE
[2020-05-08] MEDS ORDERED: fentaNYL (PF) 50 MCG/ML 2 ML AMP IV PRN (07:00)
[2020-05-08] MEDS ORDERED: BUPIVACAINE (PF) 0.25% 30 ML VIAL SQ ONE ×3 (07:26)
[2020-05-08] MEDS ORDERED: fentaNYL (PF) 50 MCG/ML 2 ML AMP ONE (07:39)
[2020-05-08] MEDS ORDERED: ROCURONIUM 10 MG/ML (10 ML VIAL) IV ONE (07:39)
[2020-05-08] MEDS ORDERED: LIDOCAINE 1% INJ 10MG/ML (20 ML MDV) ONE (07:39)
[2020-05-08] MEDS ORDERED: MIDAZOLAM 2 MG/2 ML VIAL ONE (07:39)
[2020-05-08] MEDS ORDERED: PROPOFOL 10 MG/ML 20 ML VIAL IV ONE (07:39)
[2020-05-08] MEDS ORDERED: KETOROLAC 15 MG/ML 1 ML VIAL ONE (07:39)
[2020-05-08] MEDS ORDERED: ACETAMINOPHEN IV (For NPO) 1,000 MG/100 ML VIAL ONE (07:39)
[2020-05-08] MEDS ORDERED: SUCCINYLCHOLINE CHLORIDE 100 MG/5 ML SYR IV ONE (07:39)
--- NOTE | 2020-05-08 08:29 | P.OP ---
Date of Procedure: 05/08/20 Preoperative Diagnosis: Family planning Postoperative Diagnosis: Same Procedure(s) Performed: Laparoscopic bilateral tubal ligation via fulguration Anesthesia: MARGARITO Surgeon: Lubna Terrell Estimated Blood Loss (ml): 10 Pathology: none sent Condition: stable Disposition: same day Indications for Procedure: This is a 29 y.o. female, 8, para 5, who presents for laparoscopic bilateral tubal ligation for family planning. She delivered her last child in January, and desires permanent sterilization. Operative Findings: Uterus is sounded to 9 cm and retroverted. Normal tubes and ovaries are noted. Appendix is partially visualized and appears normal. Description of Procedure: The patient is taken to the operating room where she is placed in the dorsal lithotomy position. She is prepped and draped in the normal sterile fashion. Examination is performed under anesthesia. Uterus is found to be in a retroverted position. No adnexal masses were palpated. Next a bivalve speculum was placed in the patient's vagina. A single-tooth tenaculum was used to grasp the anterior lip of the cervix. The uterus was sounded to 9 cm. The kroner uterine manipulator was then inserted through the cervix and the balloon was inflated. The single-tooth tenaculum is removed. There is noted to be some bleeding from the tenaculum site. Pressure is applied with a ring forcep and when the ring forcep is removed no active bleeding is noted. Speculum was removed gloves were changed and attention was turned to the abdomen. A small stab incision was made with a scalpel in the infraumbilical fold. A towel clip was placed above the umbilicus for retraction. A 5 mm disposable bladeless trocar was then inserted into the peritoneal cavity under direct visualization. Once inside, pneumoperitoneum was achieved with CO2 gas. The insert was removed and the camera was replaced. Intraperitoneal placement was confirmed. No bleeding was noted. Next the patient was placed in Trendelenburg position. A small stab incision was made suprapubically and a 5 mm disposable bladeless trocar was inserted into the peritoneal cavity under direct visualization. Once inside pelvic contents were inspected. Next a bipolar Kleppinger instrument was placed through the inferior trocar and the midportion of each tube was brought away from other structures and completely fulgurated on approximate 2-3 cm segment of each tube. Excellent hemostasis was noted. Pictures were taken. Pneumoperitoneum was released after the inferior trocar was removed under direct visualization. The upper trocar was then removed. The skin incisions were then closed with 4-0 Vicryl suture in a subcuticular fashion. The bottom incision was also reapproximated with one interrupted stitch of 4-0 Vicryl suture. Incisions were then injected with quarter percent Marcaine. Approximately 6 mL were used. Next the kroner uterine manipulator was removed. Minimal bleeding was noted. All sponge and needle counts are correct. The patient is then taken to recovery room in stable condition.
[2020-05-08 08:44] VITALS: TEMP 97.9
[2020-05-08] MEDS: HYDROmorphone 0.5 MG/0.5 ML SYRINGE IVP PRN ×3 (08:57→09:09)
[2020-05-08 09:43] VITALS: BP 138/84; PULSE 68; RESP 18
== END 2020-05-08 10:11 | disposition home or self-care (01) ==
LOC: OR 06:34
PROVIDERS: ATTEND Obstetrics & Gynecology
DX: Z30.2 Encounter for sterilization (principal); K21.9 Gastro-esophageal reflux disease without esophagitis; G43.909 Migraine, unspecified, not intractable, without status migrainosus; Z86.14 Personal history of Methicillin resistant Staphylococcus aureus infection; Z98.818 Other dental procedure status; Z82.49 Family history of ischemic heart disease and other diseases of the circulatory system
CPT/HCPCS: 81025; 58670; J2250; J1100; J2405; J2001; J3010; J0131; J1885; J0330; J2704; J1170

== ENCOUNTER 2023-12-09 07:59 | Emergency (ER) | payer OTHER ==
[2023-12-09] MEDS ORDERED: MORPHINE SULFATE 4 MG/ML SYRINGE ONE (08:52)
[2023-12-09] MEDS ORDERED: SODIUM CHLORIDE 0.9% 1,000 ML BAG ONE (09:00)
[2023-12-09] MEDS ORDERED: KETOROLAC 15 MG/ML 1 ML VIAL ONE (10:04)
--- NOTE | 2024-01-06 15:02 | US ---
Martha Cortez ID: [id number] : 1990 EXAMINATION TYPE: US transvaginal plus Dopplers DATE OF EXAM: 12/09/2023 COMPARISON: None HISTORY: 33 year-old female bilateral cramping, history of tubal ligation, abnormal menses. LMP: 12/08, G8 P 5 TECHNIQUE: Multiple transvaginal sonographic images of the pelvis are obtained. Color Doppler and spe ctral waveform analysis of the ovarian arteries and veins. FINDINGS: Uterus anteverted measuring 9.0 x 4.0 x 4.2 cm. Small cervical nabothian cysts are present. The myome trium is mildly heterogeneous. Endometrial stripe thickness of 8.1 mm, within normal limits. Right ovary measures 3.2 x 1.4 x 1.3 cm for a volume of 3.0 mL. Follicular changes present. Satisfact ory arterial and venous flow is present. Left ovary measures 3.3 x 1.7 x 2.2 cm for a volume of 6.3 mL. Follicular change is present as well a s a thick-walled crenulated cystic structure measuring 1.7 cm, probably a corpus luteum. Satisfactory arterial and venous flow is demonstrated. Mild free fluid noted adjacent to the right ovary. No cul-de-sac free fluid seen. IMPRESSION: 1. No sonographic evidence for ovarian torsion. 2. Follicular change in both ovaries. Additional suspected 1.7 cm corpus luteum of the left ovary. 3. Trace right adnexal free fluid probably physiologic. Clinically correlate. 4. Endometrial stripe thickness of 8.1 mm, within normal limits.
== END 2023-12-09 10:40 | disposition home or self-care (01) ==
LOC: EC 07:59
DX: N83.209 Unspecified ovarian cyst, unspecified side (principal)
CPT/HCPCS: 76830; 93975; 96361; 96374; 96375; 99284